=== PATIENT | female | born 1955 | race African-American/Black ===

== ENCOUNTER 2022-02-16 04:45 | Inpatient (IN) | payer OTHER ==
[2022-02-16] MEDS ORDERED: SUCCINYLCHOLINE CHLORIDE 200 MG/10 ML SYRINGE ONE (13:05)
[2022-02-16] MEDS ORDERED: PROPOFOL 20 ML ONE (13:05)
[2022-02-16] MEDS ORDERED: MIDAZOLAM HCL 2 MG/2 ML SINGLE DOSE VIAL ONE (13:05)
[2022-02-16] MEDS ORDERED: VASOPRESSIN 20 UNITS/ML VIAL IV ONE (13:06)
[2022-02-16] MEDS ORDERED: ceFAZolin SODIUM 1 GM VIAL IVPB ONE (13:28)
[2022-02-16] MEDS ORDERED: ceFAZolin SODIUM 1 GM VIAL ONE (13:29)
[2022-02-16] MEDS ORDERED: DEXAMETHASONE SOD PHOSPHATE 4 MG/1 ML VIAL ONE (13:33)
[2022-02-16] MEDS ORDERED: ONDANSETRON 4 MG/2 ML VIAL IVPUSH PRN (15:37)
[2022-02-16] MEDS ORDERED: LACTATED RINGERS SOLUTION 1,000 ML IV SCH (15:45)
[2022-02-16] MEDS ORDERED: FENTANYL CITRATE/PF 50 MCG/ML VIAL ONE (17:23)
[2022-02-16 18:33] LABS: BASO % 0.1 % (0-2.0); EOS % 0.2 % (0-4.5); HEMATOCRIT 45.8 % (32.4-45.2); HEMOGLOBIN 14.9 GM/dL (10.7-15.3); LYMPH % 11.6 % (8-40); MCH 28.8 pg (25.7-33.7); MCHC 32.5 g/dl (32.0-36.0); MEAN CELL VOLUME 88.6 fl (80-96); MONO % 3.7 % (3.8-10.2); NEUT % 84.4 % (42.8-82.8); PLATELET COUNT 270 10^3/uL (134-434); RBC 5.17 M/mm3 (3.60-5.2); WHITE BLOOD COUNT 6.7 K/mm3 (4.0-10.0)
[2022-02-16] MEDS ORDERED: methylPREDNISolone NA SUCC 40 MG/1 ML VIAL ONE (18:39)
[2022-02-16] MEDS ORDERED: ALBUTEROL SO4 0.083% IH SOL 2.5 MG/3 ML VIAL.NEB. NEB ONE (18:39)
[2022-02-16 18:47] LABS: CHLORIDE 108 mmol/L (98-107); SODIUM 145 mmol/L (136-145)
[2022-02-16 18:49] LABS: ALBUMIN 3.5 g/dl (3.4-5.0); ANION GAP 6 MMOL/L (8-16); BLOOD UREA NITROGEN 9.9 mg/dL (7-18); CALCIUM 8.6 mg/dL (8.5-10.1); CO2 31 mmol/L (21-32); GLUCOSE,RANDOM 129 mg/dL (74-106)
[2022-02-16 18:52] LABS: SGOT/AST 23 U/L (15-37); SGPT/ALT 29 U/L (13-61)
[2022-02-16] MEDS: methylPREDNISolone NA SUCC 40 MG/1 ML VIAL IVPUSH SCH (18:53)
[2022-02-16 18:54] LABS: TOT PROT 6.6 g/dl (6.4-8.2)
[2022-02-16 18:55] LABS: ALK PHOS 63 U/L (45-117)
[2022-02-16 19:08] LABS: INR 1.01 (0.83-1.09); PROTHROMBIN TIME (PATIENT) 11.6 SEC (9.7-13.0)
[2022-02-16 19:11] LABS: ACTIVATED PTT 31.2 SECONDS (25.2-36.5)
[2022-02-16] MEDS: LABETALOL HCL 5 MG/1 ML (100MG/20 ML VIAL) IVPUSH ONE ×2 (19:22→19:35)
[2022-02-16] MEDS: ALBUTEROL SO4 2.5/IPRATROPIUM 0.5 INH SOL 3 ML VIAL.NEB. NEB SCH (19:45)
[2022-02-16] MEDS: ROSUVASTATIN CA 20 MG TABLET PO SCH (21:16)
[2022-02-16] MEDS: amLODIPine BESYLATE 10 MG TABLET (FP) PO SCH (21:16)
[2022-02-16] MEDS ORDERED: ACETAMINOPHEN 325 MG TABLET (FP) PO PRN (21:50)
[2022-02-16] MEDS ORDERED: ACETAMINOPHEN 1000 MG/100 ML BAG IVPB PRN (21:50)
[2022-02-16] MEDS ORDERED: DEXTROSE 5%-0.45% SALINE 1,000 ML IV SCH ×2 (22:30)
[2022-02-16] MEDS ORDERED: PREGABALIN 50 MG CAPSULE PO ONE (22:45)
[2022-02-17] MEDS: methylPREDNISolone NA SUCC 40 MG/1 ML VIAL IVPUSH SCH ×3 (02:06→17:47)
[2022-02-17] MEDS: INSULIN SLIDING SCALE (NOVOLOG) 1 VIAL SQ SCH ×4 (07:02→21:37)
[2022-02-17 07:59] LABS: HEMATOCRIT 41.7 % (32.4-45.2); HEMOGLOBIN 13.8 GM/dL (10.7-15.3); MCHC 33.2 g/dl (32.0-36.0); MEAN CELL VOLUME 87.3 fl (80-96); MEAN PLT VOLUME 9.2 fl (7.5-11.1); PLATELET COUNT 252 10^3/uL (134-434); RBC 4.77 M/mm3 (3.60-5.2); RDW 15.7 % (11.6-15.6); WHITE BLOOD COUNT 8.5 K/mm3 (4.0-10.0)
[2022-02-17 08:15] LABS: CALCIUM 8.3 mg/dL (8.5-10.1)
[2022-02-17 08:16] LABS: ALBUMIN 3.2 g/dl (3.4-5.0); BLOOD UREA NITROGEN 10.1 mg/dL (7-18)
[2022-02-17 08:19] LABS: CREATININE 0.8 mg/dL (0.55-1.3)
[2022-02-17 08:20] LABS: TOT PROT 6.2 g/dl (6.4-8.2)
[2022-02-17] MEDS: ALBUTEROL SO4 2.5/IPRATROPIUM 0.5 INH SOL 3 ML VIAL.NEB. NEB SCH ×2 (08:32→11:20)
[2022-02-17 09:02] LABS: ANISOCYTOSIS 0; HELMET CELLS 0; HOWELL-JOLLY BODIES 0; MACROCYTOSIS 0; OVALOCYTE 0; ROULEAU 0; SICKELED CELLS 0; TARGET CELLS 0; TEAR DROP CELLS 0; TOXIC GRANULATION 0
[2022-02-17] MEDS: TICAGRELOR 90 MG TABLET PO SCH ×2 (09:33→21:30)
[2022-02-17] MEDS: HYDROCHLOROTHIAZIDE 25 MG TABLET (FP) PO SCH (09:35)
[2022-02-17] MEDS: ASPIRIN COATED 81 MG TABLET.EC PO SCH (09:35)
[2022-02-17] MEDS: amLODIPine BESYLATE 10 MG TABLET (FP) PO SCH (09:35)
[2022-02-17] MEDS ORDERED: METOPROLOL TARTRATE 50 MG TABLET (FP) PO SCH (10:00)
[2022-02-17] MEDS ORDERED: ALBUTEROL SO4 2.5/IPRATROPIUM 0.5 INH SOL 3 ML VIAL.NEB. NEB PRN (16:01)
[2022-02-17] MEDS ORDERED: oxyCODONE HCL 5 MG TABLET PO PRN (18:18)
[2022-02-17] MEDS: ROSUVASTATIN CA 20 MG TABLET PO SCH (21:29)
[2022-02-18] MEDS: methylPREDNISolone NA SUCC 40 MG/1 ML VIAL IVPUSH SCH ×2 (02:00→10:03)
[2022-02-18 06:36] LABS: HEMATOCRIT 41.9 % (32.4-45.2); HEMOGLOBIN 13.8 GM/dL (10.7-15.3); MCH 28.8 pg (25.7-33.7); MEAN CELL VOLUME 87.2 fl (80-96); MEAN PLT VOLUME 9.4 fl (7.5-11.1); PLATELET COUNT 270 10^3/uL (134-434); RBC 4.81 M/mm3 (3.60-5.2); RDW 16.4 % (11.6-15.6); WHITE BLOOD COUNT 13.9 K/mm3 (4.0-10.0)
[2022-02-18] MEDS: INSULIN SLIDING SCALE (NOVOLOG) 1 VIAL SQ SCH ×4 (06:41→22:26)
[2022-02-18 07:04] LABS: CHLORIDE 102 mmol/L (98-107); SODIUM 140 mmol/L (136-145)
[2022-02-18 07:09] LABS: ALBUMIN 3.4 g/dl (3.4-5.0); ANION GAP 7 MMOL/L (8-16); BLOOD UREA NITROGEN 13.6 mg/dL (7-18); CO2 31 mmol/L (21-32); GLUCOSE,RANDOM 139 mg/dL (74-106)
[2022-02-18 07:12] LABS: CREATININE 0.8 mg/dL (0.55-1.3); SGOT/AST 15 U/L (15-37); SGPT/ALT 22 U/L (13-61)
[2022-02-18 07:13] LABS: TOT PROT 6.5 g/dl (6.4-8.2)
[2022-02-18 07:14] LABS: ALK PHOS 55 U/L (45-117); BILIRUBIN,TOTAL 0.9 mg/dL (0.2-1)
[2022-02-18 08:55] LABS: ANISOCYTOSIS 1+; MACROCYTOSIS 0; OVALOCYTE 2+
[2022-02-18] MEDS: HYDROCHLOROTHIAZIDE 25 MG TABLET (FP) PO SCH (09:31)
[2022-02-18] MEDS: ASPIRIN COATED 81 MG TABLET.EC PO SCH (09:31)
[2022-02-18] MEDS: amLODIPine BESYLATE 10 MG TABLET (FP) PO SCH (09:31)
[2022-02-18] MEDS: TICAGRELOR 90 MG TABLET PO SCH ×2 (09:32→22:26)
[2022-02-18 12:15] VITALS: BMI 45.9
[2022-02-18] MEDS: PANTOPRAZOLE 40 MG TABLET PO SCH (12:33)
[2022-02-18] MEDS ORDERED: oxyCODONE HCL 5 MG TABLET PO PRN (18:54)
[2022-02-18] MEDS: ROSUVASTATIN CA 20 MG TABLET PO SCH (22:26)
[2022-02-19 06:19] LABS: CALCIUM 8.9 mg/dL (8.5-10.1)
[2022-02-19 06:20] LABS: ALBUMIN 3.1 g/dl (3.4-5.0); BLOOD UREA NITROGEN 21.2 mg/dL (7-18)
[2022-02-19 06:23] LABS: CREATININE 0.9 mg/dL (0.55-1.3)
[2022-02-19 06:24] LABS: BILIRUBIN,TOTAL 0.9 mg/dL (0.2-1); TOT PROT 5.9 g/dl (6.4-8.2)
[2022-02-19] MEDS: INSULIN SLIDING SCALE (NOVOLOG) 1 VIAL SQ SCH ×2 (06:40→11:41)
[2022-02-19] MEDS: amLODIPine BESYLATE 10 MG TABLET (FP) PO SCH ×2 (08:11→11:36)
[2022-02-19 08:24] VITALS: TEMP 98.1
[2022-02-19 09:01] LABS: N-TERMINAL BNP 50.4 pg/ml (5-125)
[2022-02-19] MEDS ORDERED: REGADENOSON 0.4 MG/5 ML PRE-FILLED SYRINGE IVPUSH ONE ×2 (10:45→11:15)
[2022-02-19] MEDS: PANTOPRAZOLE 40 MG TABLET PO SCH (11:35)
[2022-02-19] MEDS: ASPIRIN COATED 81 MG TABLET.EC PO SCH (11:35)
[2022-02-19] MEDS: HYDROCHLOROTHIAZIDE 25 MG TABLET (FP) PO SCH (11:35)
[2022-02-19] MEDS: TICAGRELOR 90 MG TABLET PO SCH (11:36)
[2022-02-19 17:17] VITALS: BP 130/73; PULSE 93
== END 2022-02-19 16:30 | disposition home or self-care (01) | DRG 742 ==
LOC: JASU-SURG 04:45 → JERBED 19:10 → JICU 20:37
PROVIDERS: ADMIT Internal Medicine; ATTEND Internal Medicine
PROC: 0UDB8ZX Extraction of Endometrium, Via Natural or Artificial Opening Endoscopic, Diagnostic (ICD-10-PCS; 2022-02-16)
PROC: 0UB98ZZ Excision of Uterus, Via Natural or Artificial Opening Endoscopic (ICD-10-PCS; principal; 2022-02-16 11:00)
DX: D25.0 Submucous leiomyoma of uterus (principal); I97.191 Other postprocedural cardiac functional disturbances following other surgery; J95.89 Other postprocedural complications and disorders of respiratory system, not elsewhere classified; T17.890A Other foreign object in other parts of respiratory tract causing asphyxiation, initial encounter; J98.11 Atelectasis; E87.0 Hyperosmolality and hypernatremia; Z68.42 Body mass index [BMI] 45.0-49.9, adult; B02.8 Zoster with other complications; E66.01 Morbid (severe) obesity due to excess calories; I10 Essential (primary) hypertension; R53.82 Chronic fatigue, unspecified; E78.5 Hyperlipidemia, unspecified; R77.8 Other specified abnormalities of plasma proteins; E11.9 Type 2 diabetes mellitus without complications; I25.10 Atherosclerotic heart disease of native coronary artery without angina pectoris; R91.1 Solitary pulmonary nodule; Y83.8 Other surgical procedures as the cause of abnormal reaction of the patient, or of later complication, without mention of misadventure at the time of the procedure; Z71.3 Dietary counseling and surveillance
CPT/HCPCS: 36415; 71045-TC-FY; 78452-TC; 80053; 80061; 82550; 82553; 82962; 83036; 83880; 84443; 84484; 85025; 85610; 85730; 86850; 86900; 86901; 88305-TC; 93005; 93010; 93017; 93306-TC; 93970-TC; 94010; 94640; 94760; A9502; J2785

== ENCOUNTER 2022-10-23 16:04 | Inpatient (IN) | payer OTHER ==
[2022-10-23] MEDS ORDERED: SODIUM CHLORIDE 1,000 ML IV STA (16:56)
[2022-10-23] MEDS ORDERED: MAG HYDROX/AL HYDROX/SIMETH -MYLANTA- ORAL SUSPENSION PO ONE (17:02)
[2022-10-23] MEDS ORDERED: ONDANSETRON 4 MG/2 ML VIAL IVPUSH ONE (17:02)
[2022-10-23] MEDS ORDERED: FAMOTIDINE 20 MG/50 ML IVPB 20 MG/50 ML MG IVPB ONE ×2 (17:02→17:54)
[2022-10-23] MEDS ORDERED: MAG HYDROX/AL HYDROX/SIMETH 30 ML UNIT-DOSE CUP ONE (17:54)
[2022-10-23] MEDS ORDERED: ONDANSETRON 4 MG/2 ML VIAL ONE (17:54)
[2022-10-23 18:09] LABS: BASO % 0.4 % (0-2.0); EOS % 2.5 % (0-4.5); HEMATOCRIT 46.2 % (32.4-45.2); HEMOGLOBIN 15.3 GM/dL (10.7-15.3); LYMPH % 20.6 % (8-40); MCH 28.2 pg (25.7-33.7); MCHC 33.1 g/dl (32.0-36.0); MEAN CELL VOLUME 85.1 fl (80-96); MEAN PLT VOLUME 10.3 fl (7.5-11.1); MONO % 8.6 % (3.8-10.2); NEUT % 67.9 % (42.8-82.8); PLATELET COUNT 295 10^3/uL (134-434); RBC 5.43 M/mm3 (3.60-5.2); WHITE BLOOD COUNT 7.2 K/mm3 (4.0-10.0)
[2022-10-23 18:31] LABS: ALBUMIN 3.5 g/dl (3.4-5.0); BLOOD UREA NITROGEN 27.3 mg/dL (7-18); CALCIUM 9.6 mg/dL (8.5-10.1); MAGNESIUM 2.1 mg/dL (1.8-2.4)
[2022-10-23 18:34] LABS: CREATININE 1.3 mg/dL (0.55-1.3)
[2022-10-23 18:36] LABS: BILIRUBIN,TOTAL 2.3 mg/dL (0.2-1)
[2022-10-23] MEDS ORDERED: POTASSIUM CHLORIDE ORAL LIQUID 20 MEQ/15 ML PO ONE (20:20)
[2022-10-23] MEDS ORDERED: POTASSIUM CHLORIDE ORAL LIQUID 20 MEQ/15 ML ONE (20:49)
[2022-10-23] MEDS ORDERED: ACETAMINOPHEN 1000 MG/100 ML BAG IVPB PRN (22:23)
[2022-10-24] MEDS: DEXTROSE 5%-0.45% SALINE 1,000 ML IV SCH ×2 (03:39→11:28)
[2022-10-24 04:10] LABS: EPI CELLS 30 /uL (0-25.1); HYALINE CASTS 15 /uL (0-3.1); URINE APPEARANCE CLEAR; URINE BACTERIA 26 /uL (0-1359); URINE BILIRUBIN NEGATIVE (NEGATIVE); URINE COLOR YELLOW; URINE GLUCOSE (UA) NEGATIVE (NEGATIVE); URINE KETONE 1+ (NEGATIVE); URINE LEUK ESTERASE NEGATIVE (NEGATIVE); URINE NITRITE NEGATIVE (NEGATIVE); URINE PROTEIN 1+ (NEGATIVE); URINE RBC 17 /uL (0-23.9); URINE WBC 40 /uL (0-25.8)
[2022-10-24 04:25] VITALS: BMI 29.3
[2022-10-24] MEDS: INSULIN SLIDING SCALE (NOVOLOG) 1 VIAL SQ SCH ×4 (06:02→21:54)
[2022-10-24] MEDS: PANTOPRAZOLE SODIUM 40 MG VIAL IVPUSH SCH (09:29)
[2022-10-24] MEDS: ENOXAPARIN NA (PORCINE) 40 MG/0.4 ML DISP.SYRIN SQ SCH (09:31)
[2022-10-24] MEDS ORDERED: HYDROCHLOROTHIAZIDE 25 MG TABLET (FP) PO SCH (10:00)
[2022-10-24] MEDS: TICAGRELOR 90 MG TABLET PO SCH ×2 (11:28→21:53)
[2022-10-24] MEDS: amLODIPine BESYLATE 10 MG TABLET (FP) PO SCH (11:28)
[2022-10-24] MEDS: PREGABALIN 50 MG CAPSULE PO SCH ×2 (11:28→21:53)
[2022-10-24] MEDS: ASPIRIN COATED 81 MG TABLET.EC PO SCH (11:28)
[2022-10-24] MEDS: DEXTROSE 5%-0.45% SALINE 1,000 ML with POTASSIUM CHLORIDE 20 MEQ IV SCH (14:47)
[2022-10-24 18:19] LABS: BASO % 0.5 % (0-2.0); EOS % 2.6 % (0-4.5); HEMATOCRIT 41.1 % (32.4-45.2); HEMOGLOBIN 13.4 GM/dL (10.7-15.3); MCH 27.9 pg (25.7-33.7); MCHC 32.5 g/dl (32.0-36.0); MEAN CELL VOLUME 85.9 fl (80-96); MEAN PLT VOLUME 9.4 fl (7.5-11.1); MONO % 11.7 % (3.8-10.2); NEUT % 63.2 % (42.8-82.8); PLATELET COUNT 308 10^3/uL (134-434); RBC 4.79 M/mm3 (3.60-5.2); RDW 15.3 % (11.6-15.6); WHITE BLOOD COUNT 5.3 K/mm3 (4.0-10.0)
[2022-10-24 18:41] LABS: BLOOD UREA NITROGEN 17.4 mg/dL (7-18); CALCIUM 8.7 mg/dL (8.5-10.1)
[2022-10-24 18:45] LABS: CREATININE 0.8 mg/dL (0.55-1.3)
[2022-10-24 18:46] LABS: BILIRUBIN,TOTAL 1.8 mg/dL (0.2-1); TOT PROT 6.1 g/dl (6.4-8.2)
[2022-10-24] MEDS: ROSUVASTATIN CA 20 MG TABLET PO SCH (21:53)
[2022-10-25] MEDS: DEXTROSE 5%-0.45% SALINE 1,000 ML with POTASSIUM CHLORIDE 20 MEQ IV SCH (05:15)
[2022-10-25] MEDS: INSULIN SLIDING SCALE (NOVOLOG) 1 VIAL SQ SCH ×4 (06:06→21:49)
[2022-10-25] MEDS: ENOXAPARIN NA (PORCINE) 40 MG/0.4 ML DISP.SYRIN SQ SCH (09:07)
[2022-10-25] MEDS: PREGABALIN 50 MG CAPSULE PO SCH ×3 (09:07→21:49)
[2022-10-25] MEDS: amLODIPine BESYLATE 10 MG TABLET (FP) PO SCH ×2 (09:07→09:13)
[2022-10-25] MEDS: ASPIRIN COATED 81 MG TABLET.EC PO SCH ×2 (09:07→09:13)
[2022-10-25] MEDS: PANTOPRAZOLE SODIUM 40 MG VIAL IVPUSH SCH (09:07)
[2022-10-25] MEDS: TICAGRELOR 90 MG TABLET PO SCH ×3 (09:08→21:49)
[2022-10-25] MEDS: ONDANSETRON 4 MG/2 ML VIAL IVPUSH PRN (09:20)
[2022-10-25 10:20] LABS: BASO % 0.4 % (0-2.0); EOS % 1.9 % (0-4.5); HEMATOCRIT 41.9 % (32.4-45.2); HEMOGLOBIN 13.9 GM/dL (10.7-15.3); LYMPH % 15.2 % (8-40); MCH 28.4 pg (25.7-33.7); MCHC 33.1 g/dl (32.0-36.0); MEAN CELL VOLUME 86.1 fl (80-96); MEAN PLT VOLUME 9.1 fl (7.5-11.1); NEUT % 71.5 % (42.8-82.8); PLATELET COUNT 292 10^3/uL (134-434); RBC 4.87 M/mm3 (3.60-5.2); RDW 15.3 % (11.6-15.6); WHITE BLOOD COUNT 5.6 K/mm3 (4.0-10.0)
[2022-10-25 10:30] LABS: BLOOD UREA NITROGEN 12.2 mg/dL (7-18); CALCIUM 8.6 mg/dL (8.5-10.1); MAGNESIUM 2.4 mg/dL (1.8-2.4)
[2022-10-25 10:33] LABS: CREATININE 0.8 mg/dL (0.55-1.3)
[2022-10-25 10:35] LABS: BILIRUBIN,TOTAL 1.7 mg/dL (0.2-1)
[2022-10-25] MEDS ORDERED: POTASSIUM PHOSPHATE 30 MM in SODIUM CHLORIDE 500 ML IVPB ONE (12:45)
[2022-10-25] MEDS ORDERED: DEXTROSE 5%-0.45% SALINE 1,000 ML with POTASSIUM CHLORIDE 20 MEQ IV SCH (12:45)
[2022-10-25] MEDS ORDERED: POTASSIUM CHLORIDE 20 MEQ in DEXTROSE 5%-0.45% SALINE 1,000 ML IV SCH (12:48)
[2022-10-25] MEDS: D5-1/2NS+20 MEQ KCL - 20 MEQ/1,000 ML INFUS.BAG IV SCH (13:00)
[2022-10-25] MEDS ORDERED: KCL 10 MEQ IVPB 10 MEQ/100 ML INFUS.BAG IVPB SCH (21:00)
[2022-10-25] MEDS: ROSUVASTATIN CA 20 MG TABLET PO SCH (21:49)
[2022-10-26] MEDS: INSULIN SLIDING SCALE (NOVOLOG) 1 VIAL SQ SCH ×4 (06:47→23:30)
[2022-10-26] MEDS ORDERED: PHENOL 177 ML SPRAY BOTTLE MM PRN (08:28)
[2022-10-26] MEDS: ASPIRIN COATED 81 MG TABLET.EC PO SCH (09:30)
[2022-10-26] MEDS: TICAGRELOR 90 MG TABLET PO SCH ×2 (09:30→21:50)
[2022-10-26] MEDS: PREGABALIN 50 MG CAPSULE PO SCH ×2 (09:37→21:50)
[2022-10-26] MEDS: amLODIPine BESYLATE 10 MG TABLET (FP) PO SCH (09:37)
[2022-10-26] MEDS: PANTOPRAZOLE SODIUM 40 MG VIAL IVPUSH SCH (09:55)
[2022-10-26] MEDS: ENOXAPARIN NA (PORCINE) 40 MG/0.4 ML DISP.SYRIN SQ SCH (09:55)
[2022-10-26 10:47] LABS: ALBUMIN 2.8 g/dl (3.4-5.0); BLOOD UREA NITROGEN 9.7 mg/dL (7-18); CALCIUM 8.5 mg/dL (8.5-10.1); MAGNESIUM 2.4 mg/dL (1.8-2.4)
[2022-10-26 10:49] LABS: CREATININE 0.8 mg/dL (0.55-1.3)
[2022-10-26 10:50] LABS: PHOSPHOROUS 2.4 mg/dL (2.5-4.9)
[2022-10-26 10:52] LABS: BILIRUBIN,TOTAL 1.5 mg/dL (0.2-1); TOT PROT 5.8 g/dl (6.4-8.2)
[2022-10-26] MEDS ORDERED: POTASSIUM PHOSPHATE 15 MM in SODIUM CHLORIDE 250 ML IVPB ONE (15:57)
[2022-10-26] MEDS: D5-1/2NS+20 MEQ KCL - 20 MEQ/1,000 ML INFUS.BAG IV SCH (17:24)
[2022-10-26] MEDS: ONDANSETRON 4 MG/2 ML VIAL IVPUSH PRN (18:21)
[2022-10-26] MEDS: ROSUVASTATIN CA 20 MG TABLET PO SCH (21:50)
[2022-10-27] MEDS: INSULIN SLIDING SCALE (NOVOLOG) 1 VIAL SQ SCH ×4 (06:40→21:39)
[2022-10-27 10:39] LABS: ALBUMIN 2.9 g/dl (3.4-5.0); BLOOD UREA NITROGEN 15.9 mg/dL (7-18); MAGNESIUM 2.4 mg/dL (1.8-2.4)
[2022-10-27 10:41] LABS: CREATININE 0.8 mg/dL (0.55-1.3); PHOSPHOROUS 3.4 mg/dL (2.5-4.9)
[2022-10-27 10:42] LABS: TOT PROT 6.1 g/dl (6.4-8.2)
[2022-10-27] MEDS: ASPIRIN COATED 81 MG TABLET.EC PO SCH (12:19)
[2022-10-27] MEDS: TICAGRELOR 90 MG TABLET PO SCH ×2 (12:19→21:39)
[2022-10-27] MEDS: ENOXAPARIN NA (PORCINE) 40 MG/0.4 ML DISP.SYRIN SQ SCH (12:19)
[2022-10-27] MEDS: PREGABALIN 50 MG CAPSULE PO SCH ×2 (12:20→21:39)
[2022-10-27] MEDS: amLODIPine BESYLATE 10 MG TABLET (FP) PO SCH (12:20)
[2022-10-27] MEDS: PANTOPRAZOLE SODIUM 40 MG VIAL IVPUSH SCH (12:20)
[2022-10-27] MEDS: ONDANSETRON 4 MG/2 ML VIAL IVPUSH PRN (12:50)
[2022-10-27] MEDS: D5-1/2NS+20 MEQ KCL - 20 MEQ/1,000 ML INFUS.BAG IV SCH (17:18)
[2022-10-27] MEDS: ROSUVASTATIN CA 20 MG TABLET PO SCH (21:39)
[2022-10-27] MEDS ORDERED: amLODIPine BESYLATE 10 MG TABLET (FP) NGT SCH (21:58)
[2022-10-27] MEDS ORDERED: ROSUVASTATIN CA 20 MG TABLET NGT SCH (21:58)
[2022-10-27] MEDS: METOPROLOL TARTRATE 25 MG TABLET (FP) NGT SCH (22:26)
[2022-10-28] MEDS ORDERED: BUPIVACAINE HCL/PF 0.5% (5MG/ML) 10 ML VIAL NR ONE
[2022-10-28] MEDS: ONDANSETRON 4 MG/2 ML VIAL IVPUSH PRN (01:09)
[2022-10-28] MEDS: INSULIN SLIDING SCALE (NOVOLOG) 1 VIAL SQ SCH ×3 (06:27→23:03)
[2022-10-28] MEDS ORDERED: LIDOCAINE HCL/PF 2% SDV 5ML VIAL ONE (07:25)
[2022-10-28] MEDS ORDERED: MIDAZOLAM HCL 2 MG/2 ML SINGLE DOSE VIAL ONE (07:25)
[2022-10-28] MEDS ORDERED: PROPOFOL 40 ML ONE (07:27)
[2022-10-28] MEDS ORDERED: ROCURONIUM BROMIDE 50 MG/5 ML SYRINGE ONE ×2 (07:27→09:01)
[2022-10-28] MEDS ORDERED: BUPIVACAINE HCL/PF 0.5% (5MG/ML) 10 ML VIAL ONE (07:47)
[2022-10-28] MEDS ORDERED: CLINDAMYCIN 600MG PREMIX IVPB 600 MG/50 ML BAG IVPB ONE ×2 (08:48→09:00)
[2022-10-28] MEDS ORDERED: DEXAMETHASONE SOD PHOSPHATE 4 MG/1 ML VIAL ONE (08:48)
[2022-10-28] MEDS ORDERED: CLINDAMYCIN PHOSPHATE 600 MG/4 ML VIAL IVPB ONE (08:51)
[2022-10-28] MEDS ORDERED: KETAMINE HCL 500 MG/10 ML VIAL ONE (09:06)
[2022-10-28] MEDS ORDERED: SUGAMMADEX SODIUM 200 MG/2 ML VIAL ONE (09:43)
[2022-10-28] MEDS: METOPROLOL TARTRATE 25 MG TABLET (FP) NGT SCH (10:27)
[2022-10-28] MEDS: ENOXAPARIN NA (PORCINE) 40 MG/0.4 ML DISP.SYRIN SQ SCH (10:27)
[2022-10-28] MEDS: PANTOPRAZOLE SODIUM 40 MG VIAL IVPUSH SCH (10:28)
[2022-10-28] MEDS: PREGABALIN 50 MG CAPSULE PO SCH (10:28)
[2022-10-28] MEDS ORDERED: ACETAMINOPHEN INJECTION 100 ML IVPB ONE ×2 (10:34→14:26)
[2022-10-28] MEDS ORDERED: LABETALOL HCL 20 MG/4 ML VIAL ONE (11:10)
[2022-10-28] MEDS ORDERED: ONDANSETRON 4 MG/2 ML VIAL IVPUSH PRN (11:42)
[2022-10-28] MEDS ORDERED: HYDROmorphone *PCA* 10MG/50ML DISP.SYRIN PCA SCH (11:45)
[2022-10-28] MEDS ORDERED: LACTATED RINGERS SOLUTION 1,000 ML IV SCH (11:45)
[2022-10-28] MEDS ORDERED: PHENOL 177 ML SPRAY BOTTLE MM PRN (11:56)
[2022-10-28] MEDS: LACTATED RINGERS SOLUTION 1,000 ML IV SCH ×2 (14:30→23:00)
[2022-10-28 15:36] LABS: HEMOGLOBIN 12.5 GM/dL (10.7-15.3); MCHC 32.7 g/dl (32.0-36.0); MEAN CELL VOLUME 88.7 fl (80-96); MEAN PLT VOLUME 8.6 fl (7.5-11.1); PLATELET COUNT 329 10^3/uL (134-434); RBC 4.29 M/mm3 (3.60-5.2); RDW 15.3 % (11.6-15.6); WHITE BLOOD COUNT 7.3 K/mm3 (4.0-10.0)
[2022-10-28 15:41] LABS: INR 1.17 (0.83-1.09); PROTHROMBIN TIME (PATIENT) 13.5 SEC (9.7-13.0)
[2022-10-28] MEDS: HYDROmorphone *PCA* 10MG/50ML DISP.SYRIN PCA SCH (16:00)
[2022-10-28 16:01] LABS: CALCIUM 7.9 mg/dL (8.5-10.1)
[2022-10-28 16:02] LABS: BLOOD UREA NITROGEN 14.9 mg/dL (7-18)
[2022-10-28 16:05] LABS: CREATININE 0.8 mg/dL (0.55-1.3)
[2022-10-28 16:11] LABS: ANISOCYTOSIS 1+; MACROCYTOSIS 0; OVALOCYTE 1+
[2022-10-28] MEDS ORDERED: ACETAMINOPHEN 1000 MG/100 ML BAG IVPB PRN (18:00)
[2022-10-28] MEDS ORDERED: ROSUVASTATIN CA 20 MG TABLET NGT SCH (22:00)
[2022-10-28] MEDS ORDERED: PREGABALIN 50 MG CAPSULE PO SCH (22:00)
[2022-10-28] MEDS ORDERED: METOPROLOL TARTRATE 25 MG TABLET (FP) NGT SCH (22:00)
[2022-10-29] MEDS: INSULIN SLIDING SCALE (NOVOLOG) 1 VIAL SQ SCH ×4 (06:48→21:46)
[2022-10-29] MEDS: LACTATED RINGERS SOLUTION 1,000 ML IV SCH ×2 (07:08→17:16)
[2022-10-29] MEDS: PANTOPRAZOLE SODIUM 40 MG VIAL IVPUSH SCH (09:42)
[2022-10-29] MEDS: ENOXAPARIN NA (PORCINE) 40 MG/0.4 ML DISP.SYRIN SQ SCH (09:43)
[2022-10-29] MEDS ORDERED: amLODIPine BESYLATE 10 MG TABLET (FP) NGT SCH (10:00)
[2022-10-29] MEDS: AMINO ACIDS 4.25%/D5W 1,000 ML IV SCH ×2 (10:17→22:00)
[2022-10-29 10:41] LABS: BASO % 0.2 % (0-2.0); EOS % 0.7 % (0-4.5); HEMATOCRIT 36.3 % (32.4-45.2); HEMOGLOBIN 11.9 GM/dL (10.7-15.3); LYMPH % 6.2 % (8-40); MCH 29.1 pg (25.7-33.7); MCHC 32.7 g/dl (32.0-36.0); MEAN CELL VOLUME 89.2 fl (80-96); MEAN PLT VOLUME 9.2 fl (7.5-11.1); MONO % 4.8 % (3.8-10.2); NEUT % 88.1 % (42.8-82.8); PLATELET COUNT 347 10^3/uL (134-434); RBC 4.07 M/mm3 (3.60-5.2); RDW 15.4 % (11.6-15.6); WHITE BLOOD COUNT 12.2 K/mm3 (4.0-10.0)
[2022-10-29 11:00] LABS: CALCIUM 7.8 mg/dL (8.5-10.1)
[2022-10-29 11:01] LABS: BLOOD UREA NITROGEN 13.6 mg/dL (7-18)
[2022-10-29 11:04] LABS: CREATININE 0.7 mg/dL (0.55-1.3)
[2022-10-29 11:05] LABS: BILIRUBIN,TOTAL 0.9 mg/dL (0.2-1)
[2022-10-29] MEDS: HYDROmorphone *PCA* 10MG/50ML DISP.SYRIN PCA SCH ×2 (11:21→11:29)
[2022-10-29 11:23] LABS: ALBUMIN 2.1 g/dl (3.4-5.0)
[2022-10-30] MEDS: LACTATED RINGERS SOLUTION 1,000 ML IV SCH (06:24)
[2022-10-30] MEDS: INSULIN SLIDING SCALE (NOVOLOG) 1 VIAL SQ SCH ×4 (06:32→21:49)
[2022-10-30 07:35] LABS: BASO % 0.2 % (0-2.0); EOS % 2.2 % (0-4.5); HEMATOCRIT 33.3 % (32.4-45.2); HEMOGLOBIN 10.9 GM/dL (10.7-15.3); LYMPH % 7.2 % (8-40); MCH 28.9 pg (25.7-33.7); MCHC 32.6 g/dl (32.0-36.0); MEAN CELL VOLUME 88.5 fl (80-96); MEAN PLT VOLUME 9.1 fl (7.5-11.1); MONO % 4.6 % (3.8-10.2); NEUT % 85.8 % (42.8-82.8); PLATELET COUNT 307 10^3/uL (134-434); RBC 3.77 M/mm3 (3.60-5.2); RDW 15.7 % (11.6-15.6); WHITE BLOOD COUNT 12.4 K/mm3 (4.0-10.0)
[2022-10-30 08:03] LABS: CHLORIDE 110 mmol/L (98-107); SODIUM 146 mmol/L (136-145)
[2022-10-30 08:06] LABS: CALCIUM 7.8 mg/dL (8.5-10.1)
[2022-10-30 08:07] LABS: ALBUMIN 1.8 g/dl (3.4-5.0); ANION GAP 3 MMOL/L (8-16); BLOOD UREA NITROGEN 15.8 mg/dL (7-18); CO2 33 mmol/L (21-32); GLUCOSE,RANDOM 118 mg/dL (74-106); MAGNESIUM 2.1 mg/dL (1.8-2.4)
[2022-10-30 08:10] LABS: CREATININE 0.7 mg/dL (0.55-1.3); SGOT/AST 10 U/L (15-37); SGPT/ALT 15 U/L (13-61); TOT PROT 4.6 g/dl (6.4-8.2)
[2022-10-30 08:11] LABS: ALK PHOS 59 U/L (45-117); BILIRUBIN,TOTAL 0.9 mg/dL (0.2-1)
[2022-10-30 08:28] LABS: PHOSPHOROUS 0.8 mg/dL (2.5-4.9)
[2022-10-30] MEDS: ENOXAPARIN NA (PORCINE) 40 MG/0.4 ML DISP.SYRIN SQ SCH (09:07)
[2022-10-30] MEDS: PANTOPRAZOLE SODIUM 40 MG VIAL IVPUSH SCH (09:07)
[2022-10-30] MEDS: AMINO ACIDS 4.25%/D5W 1,000 ML IV SCH (09:18)
[2022-10-30] MEDS: HYDROmorphone *PCA* 10MG/50ML DISP.SYRIN PCA SCH (09:24)
[2022-10-30] MEDS ORDERED: POTASSIUM PHOSPHATE 30 MM in DEXTROSE 5%-WATER - 500 ML IVPB ONE (14:45)
[2022-10-30] MEDS ORDERED: FAT EMULSION/OLIVE/SOY/PHOSPHO 250 ML IV SCH (22:00)
[2022-10-30] MEDS ORDERED: FAT EMULSION/OLIVE/SOY (CLINOLIPID) 250 ML EMULSION IV SCH (22:00)
[2022-10-31] MEDS: LACTATED RINGERS SOLUTION 1,000 ML IV SCH ×3 (01:53→23:23)
[2022-10-31] MEDS: AMINO ACIDS 4.25%/D5W 1,000 ML IV SCH ×3 (01:54→22:05)
[2022-10-31] MEDS: INSULIN SLIDING SCALE (NOVOLOG) 1 VIAL SQ SCH ×4 (09:36→21:13)
[2022-10-31] MEDS: PANTOPRAZOLE SODIUM 40 MG VIAL IVPUSH SCH (09:39)
[2022-10-31] MEDS: ENOXAPARIN NA (PORCINE) 40 MG/0.4 ML DISP.SYRIN SQ SCH (09:40)
[2022-10-31 10:40] LABS: BASO % 0.4 % (0-2.0); EOS % 2.5 % (0-4.5); HEMATOCRIT 34.3 % (32.4-45.2); HEMOGLOBIN 11.2 GM/dL (10.7-15.3); LYMPH % 6.9 % (8-40); MCH 28.8 pg (25.7-33.7); MCHC 32.5 g/dl (32.0-36.0); MEAN CELL VOLUME 88.5 fl (80-96); MEAN PLT VOLUME 8.9 fl (7.5-11.1); MONO % 5.9 % (3.8-10.2); NEUT % 84.3 % (42.8-82.8); PLATELET COUNT 340 10^3/uL (134-434); RBC 3.88 M/mm3 (3.60-5.2); RDW 15.8 % (11.6-15.6); WHITE BLOOD COUNT 12.7 K/mm3 (4.0-10.0)
[2022-10-31 10:58] LABS: CALCIUM 7.7 mg/dL (8.5-10.1)
[2022-10-31 10:59] LABS: BLOOD UREA NITROGEN 12.6 mg/dL (7-18)
[2022-10-31 11:02] LABS: CREATININE 0.6 mg/dL (0.55-1.3); PHOSPHOROUS 2.1 mg/dL (2.5-4.9)
[2022-10-31 11:03] LABS: TOT PROT 5.2 g/dl (6.4-8.2)
[2022-10-31 11:07] LABS: BILIRUBIN,TOTAL 0.7 mg/dL (0.2-1)
[2022-10-31 11:22] LABS: CHOLESTEROL 106 mg/dL (50-200); TRIGLYCERIDES 214 mg/dL (0-150)
[2022-10-31 11:24] LABS: LDL CHOLESTEROL (ONLY SJRH) 63 mg/dL (5-100)
[2022-10-31 11:25] LABS: HDL CHOLESTEROL 23 mg/dL (40-60)
[2022-10-31] MEDS ORDERED: ACETAMINOPHEN 1000 MG/100 ML BAG IVPB PRN (20:26)
[2022-11-01] MEDS: INSULIN SLIDING SCALE (NOVOLOG) 1 VIAL SQ SCH ×4 (06:11→21:53)
[2022-11-01] MEDS: ONDANSETRON 4 MG/2 ML VIAL IVPUSH PRN ×2 (06:45→14:45)
[2022-11-01 09:36] LABS: BASO % 0.2 % (0-2.0); EOS % 2.3 % (0-4.5); HEMATOCRIT 32.7 % (32.4-45.2); HEMOGLOBIN 10.9 GM/dL (10.7-15.3); LYMPH % 6.1 % (8-40); MCH 29.1 pg (25.7-33.7); MCHC 33.2 g/dl (32.0-36.0); MEAN CELL VOLUME 87.6 fl (80-96); MEAN PLT VOLUME 8.7 fl (7.5-11.1); MONO % 6.7 % (3.8-10.2); NEUT % 84.7 % (42.8-82.8); PLATELET COUNT 343 10^3/uL (134-434); RBC 3.73 M/mm3 (3.60-5.2); RDW 15.5 % (11.6-15.6); WHITE BLOOD COUNT 12.1 K/mm3 (4.0-10.0)
[2022-11-01 10:00] LABS: CALCIUM 7.8 mg/dL (8.5-10.1)
[2022-11-01] MEDS: ENOXAPARIN NA (PORCINE) 40 MG/0.4 ML DISP.SYRIN SQ SCH (10:00)
[2022-11-01] MEDS: PANTOPRAZOLE SODIUM 40 MG VIAL IVPUSH SCH (10:00)
[2022-11-01 10:01] LABS: ALBUMIN 1.9 g/dl (3.4-5.0); BLOOD UREA NITROGEN 13.4 mg/dL (7-18)
[2022-11-01 10:02] LABS: PHOSPHOROUS 1.6 mg/dL (2.5-4.9)
[2022-11-01 10:04] LABS: BILIRUBIN,TOTAL 0.7 mg/dL (0.2-1); CREATININE 0.5 mg/dL (0.55-1.3); TOT PROT 5.3 g/dl (6.4-8.2)
[2022-11-01] MEDS: AMINO ACIDS 4.25%/D5W 1,000 ML IV SCH ×2 (10:10→11:27)
[2022-11-01 10:58] LABS: ANISOCYTOSIS 0; HELMET CELLS 0; HOWELL-JOLLY BODIES 0; MACROCYTOSIS 0; OVALOCYTE 0; ROULEAU 0; SICKELED CELLS 0; TARGET CELLS 0; TEAR DROP CELLS 0; TOXIC GRANULATION 0
[2022-11-01] MEDS: KCL 10 MEQ IVPB 10 MEQ/100 ML INFUS.BAG IVPB SCH ×3 (15:59→18:38)
[2022-11-01] MEDS: DEXTROSE 5%-0.45% SALINE 1,000 ML IV SCH (16:37)
[2022-11-01] MEDS: ROSUVASTATIN CA 20 MG TABLET PO SCH (21:44)
[2022-11-01] MEDS ORDERED: PREGABALIN 50 MG CAPSULE PO SCH (22:00)
[2022-11-01] MEDS: ACETAMINOPHEN 1000 MG/100 ML BAG IVPB PRN (23:21)
[2022-11-02] MEDS: ONDANSETRON 4 MG/2 ML VIAL IVPUSH PRN (04:12)
[2022-11-02] MEDS: INSULIN SLIDING SCALE (NOVOLOG) 1 VIAL SQ SCH ×4 (07:50→22:04)
[2022-11-02 09:33] LABS: BASO % 0.3 % (0-2.0); EOS % 3.2 % (0-4.5); HEMATOCRIT 33.1 % (32.4-45.2); HEMOGLOBIN 10.9 GM/dL (10.7-15.3); LYMPH % 10.1 % (8-40); MCH 28.2 pg (25.7-33.7); MCHC 32.9 g/dl (32.0-36.0); MEAN CELL VOLUME 85.6 fl (80-96); MEAN PLT VOLUME 8.5 fl (7.5-11.1); MONO % 8.9 % (3.8-10.2); NEUT % 77.5 % (42.8-82.8); PLATELET COUNT 349 10^3/uL (134-434); RBC 3.87 M/mm3 (3.60-5.2); RDW 15.6 % (11.6-15.6); WHITE BLOOD COUNT 8.9 K/mm3 (4.0-10.0)
[2022-11-02 09:59] LABS: BLOOD UREA NITROGEN 10.5 mg/dL (7-18); CALCIUM 7.9 mg/dL (8.5-10.1)
[2022-11-02] MEDS ORDERED: TICAGRELOR 90 MG TABLET PO SCH (10:00)
[2022-11-02] MEDS ORDERED: ASPIRIN 81 MG CHEWABLE TABLETS PO SCH (10:00)
[2022-11-02 10:02] LABS: CREATININE 0.6 mg/dL (0.55-1.3)
[2022-11-02] MEDS: amLODIPine BESYLATE 5 MG TABLET (FP) PO SCH (10:03)
[2022-11-02] MEDS: ENOXAPARIN NA (PORCINE) 40 MG/0.4 ML DISP.SYRIN SQ SCH (10:03)
[2022-11-02] MEDS: PANTOPRAZOLE SODIUM 40 MG VIAL IVPUSH SCH (10:03)
[2022-11-02] MEDS: ACETAMINOPHEN 1000 MG/100 ML BAG IVPB PRN (11:57)
[2022-11-02] MEDS ORDERED: POTASSIUM CHLORIDE ORAL LIQUID 20 MEQ/15 ML PO ONE (12:00)
[2022-11-02] MEDS: DEXTROSE 5%-0.45% SALINE 1,000 ML IV SCH (14:42)
[2022-11-02] MEDS ORDERED: D5-1/2NS+20 MEQ KCL - 20 MEQ/1,000 ML INFUS.BAG IV SCH (16:19)
[2022-11-02] MEDS: ROSUVASTATIN CA 20 MG TABLET PO SCH (22:01)
[2022-11-03] MEDS: INSULIN SLIDING SCALE (NOVOLOG) 1 VIAL SQ SCH ×4 (06:19→22:02)
[2022-11-03] MEDS: amLODIPine BESYLATE 5 MG TABLET (FP) PO SCH (09:50)
[2022-11-03] MEDS: PANTOPRAZOLE SODIUM 40 MG VIAL IVPUSH SCH (09:50)
[2022-11-03] MEDS: ENOXAPARIN NA (PORCINE) 40 MG/0.4 ML DISP.SYRIN SQ SCH (09:50)
[2022-11-03 10:28] LABS: BLOOD UREA NITROGEN 7.7 mg/dL (7-18); CALCIUM 8.2 mg/dL (8.5-10.1)
[2022-11-03 10:31] LABS: CREATININE 0.6 mg/dL (0.55-1.3)
[2022-11-03 10:33] LABS: BILIRUBIN,TOTAL 0.5 mg/dL (0.2-1); TOT PROT 5.4 g/dl (6.4-8.2)
[2022-11-03] MEDS: CLINDAMYCIN 900 MG PREMIX IVPB 900 MG/50 ML BAG IVPB SCH (18:21)
[2022-11-03] MEDS: ROSUVASTATIN CA 20 MG TABLET PO SCH (22:12)
[2022-11-04] MEDS: CLINDAMYCIN 900 MG PREMIX IVPB 900 MG/50 ML BAG IVPB SCH ×2 (01:34→09:15)
[2022-11-04] MEDS: INSULIN SLIDING SCALE (NOVOLOG) 1 VIAL SQ SCH ×4 (06:37→21:21)
[2022-11-04] MEDS: amLODIPine BESYLATE 5 MG TABLET (FP) PO SCH (09:15)
[2022-11-04] MEDS: ENOXAPARIN NA (PORCINE) 40 MG/0.4 ML DISP.SYRIN SQ SCH (09:15)
[2022-11-04] MEDS: PANTOPRAZOLE SODIUM 40 MG VIAL IVPUSH SCH (09:15)
[2022-11-04 11:06] LABS: BASO % 0.8 % (0-2.0); EOS % 2.5 % (0-4.5); LYMPH % 13.4 % (8-40); MCH 29.1 pg (25.7-33.7); MCHC 33.3 g/dl (32.0-36.0); MEAN CELL VOLUME 87.4 fl (80-96); MEAN PLT VOLUME 8.6 fl (7.5-11.1); MONO % 8.4 % (3.8-10.2); NEUT % 74.9 % (42.8-82.8); PLATELET COUNT 451 10^3/uL (134-434); RBC 3.77 M/mm3 (3.60-5.2); RDW 15.7 % (11.6-15.6); WHITE BLOOD COUNT 7.9 K/mm3 (4.0-10.0)
[2022-11-04 11:43] LABS: BLOOD UREA NITROGEN 7.4 mg/dL (7-18); CALCIUM 7.9 mg/dL (8.5-10.1)
[2022-11-04 11:44] LABS: ALBUMIN 1.9 g/dl (3.4-5.0)
[2022-11-04 11:47] LABS: CREATININE 0.6 mg/dL (0.55-1.3)
[2022-11-04 11:48] LABS: BILIRUBIN,TOTAL 0.6 mg/dL (0.2-1); TOT PROT 5.1 g/dl (6.4-8.2)
[2022-11-04] MEDS ORDERED: ACETAMINOPHEN 1000 MG/100 ML BAG IVPB PRN (21:15)
[2022-11-04] MEDS: ROSUVASTATIN CA 20 MG TABLET PO SCH (21:19)
[2022-11-05] MEDS: INSULIN SLIDING SCALE (NOVOLOG) 1 VIAL SQ SCH ×4 (06:01→21:10)
[2022-11-05] MEDS: amLODIPine BESYLATE 5 MG TABLET (FP) PO SCH (09:28)
[2022-11-05] MEDS: AMINO ACIDS/PROTEIN HYDROLYS 30 ML LIQUID.PKT PO SCH (09:28)
[2022-11-05] MEDS: PANTOPRAZOLE SODIUM 40 MG VIAL IVPUSH SCH (09:29)
[2022-11-05] MEDS: PANTOPRAZOLE 40 MG TABLET PO SCH (10:19)
[2022-11-05] MEDS ORDERED: ACETAMINOPHEN 325 MG TABLET (FP) PO PRN (12:01)
[2022-11-05] MEDS: ENOXAPARIN NA (PORCINE) 40 MG/0.4 ML DISP.SYRIN SQ SCH (12:20)
[2022-11-05] MEDS: ROSUVASTATIN CA 20 MG TABLET PO SCH (21:10)
[2022-11-06] MEDS: INSULIN SLIDING SCALE (NOVOLOG) 1 VIAL SQ SCH ×2 (06:23→22:31)
[2022-11-06] MEDS: AMINO ACIDS/PROTEIN HYDROLYS 30 ML LIQUID.PKT PO SCH (08:03)
[2022-11-06] MEDS: amLODIPine BESYLATE 5 MG TABLET (FP) PO SCH (09:00)
[2022-11-06] MEDS: PANTOPRAZOLE 40 MG TABLET PO SCH (09:01)
[2022-11-06] MEDS: ENOXAPARIN NA (PORCINE) 40 MG/0.4 ML DISP.SYRIN SQ SCH (09:01)
[2022-11-06] MEDS ORDERED: LIDOCAINE HCL/PF 2% SDV 5ML VIAL ONE (10:49)
[2022-11-06] MEDS ORDERED: PROPOFOL 20 ML ONE (10:49)
[2022-11-06] MEDS ORDERED: MIDAZOLAM HCL 2 MG/2 ML SINGLE DOSE VIAL ONE (10:50)
[2022-11-06] MEDS ORDERED: BENZOIN/ALOE VERA/STORAX/TOLU 58 ML BOTTLE NR ONE (13:58)
[2022-11-06] MEDS ORDERED: ONDANSETRON 4 MG/2 ML VIAL IVPUSH PRN ×2 (14:25→14:33)
[2022-11-06] MEDS ORDERED: oxyCODONE HCL 5 MG TABLET PO PRN ×2 (14:25→14:33)
[2022-11-06] MEDS ORDERED: LACTATED RINGERS SOLUTION 1,000 ML IV SCH ×2 (14:30→14:33)
[2022-11-06] MEDS ORDERED: PHENOL 177 ML SPRAY BOTTLE MM PRN (14:33)
[2022-11-06] MEDS: ROSUVASTATIN CA 20 MG TABLET PO SCH (21:56)
[2022-11-07] MEDS: INSULIN SLIDING SCALE (NOVOLOG) 1 VIAL SQ SCH ×4 (06:34→21:04)
[2022-11-07] MEDS ORDERED: AMINO ACIDS/PROTEIN HYDROLYS 30 ML LIQUID.PKT PO SCH (08:00)
[2022-11-07] MEDS: amLODIPine BESYLATE 5 MG TABLET (FP) PO SCH (09:05)
[2022-11-07] MEDS: ENOXAPARIN NA (PORCINE) 40 MG/0.4 ML DISP.SYRIN SQ SCH (09:05)
[2022-11-07] MEDS: PANTOPRAZOLE 40 MG TABLET PO SCH (09:05)
[2022-11-07] MEDS: LIDOCAINE 5% TOPICAL PATCH TP SCH (12:57)
[2022-11-07] MEDS: ACETAMINOPHEN 500 MG TABLET (FP) PO PRN (15:48)
[2022-11-07] MEDS: AMINO ACIDS/PROTEIN HYDROLYS 30 ML LIQUID.PKT PO SCH (18:39)
[2022-11-07] MEDS: ROSUVASTATIN CA 20 MG TABLET PO SCH (21:04)
[2022-11-07] MEDS: LIDOCAINE PATCH REMOVAL MC SCH (21:07)
[2022-11-08] MEDS: AMINO ACIDS/PROTEIN HYDROLYS 30 ML LIQUID.PKT PO SCH ×2 (08:31→17:46)
[2022-11-08] MEDS: amLODIPine BESYLATE 5 MG TABLET (FP) PO SCH (10:40)
[2022-11-08] MEDS: ENOXAPARIN NA (PORCINE) 40 MG/0.4 ML DISP.SYRIN SQ SCH (10:40)
[2022-11-08] MEDS: PANTOPRAZOLE 40 MG TABLET PO SCH (10:40)
[2022-11-08] MEDS: LIDOCAINE 5% TOPICAL PATCH TP SCH (10:41)
[2022-11-08] MEDS: INSULIN SLIDING SCALE (NOVOLOG) 1 VIAL SQ SCH ×3 (11:00→21:49)
[2022-11-08] MEDS: LIDOCAINE PATCH REMOVAL MC SCH (21:12)
[2022-11-08] MEDS: ROSUVASTATIN CA 20 MG TABLET PO SCH (21:51)
[2022-11-08] MEDS: ACETAMINOPHEN 500 MG TABLET (FP) PO PRN (21:52)
[2022-11-09] MEDS: INSULIN SLIDING SCALE (NOVOLOG) 1 VIAL SQ SCH ×4 (06:28→21:28)
[2022-11-09] MEDS: amLODIPine BESYLATE 5 MG TABLET (FP) PO SCH (09:07)
[2022-11-09] MEDS: ENOXAPARIN NA (PORCINE) 40 MG/0.4 ML DISP.SYRIN SQ SCH (09:07)
[2022-11-09] MEDS: LIDOCAINE 5% TOPICAL PATCH TP SCH (09:07)
[2022-11-09] MEDS: AMINO ACIDS/PROTEIN HYDROLYS 30 ML LIQUID.PKT PO SCH ×2 (09:07→17:41)
[2022-11-09] MEDS: PANTOPRAZOLE 40 MG TABLET PO SCH (09:07)
[2022-11-09 09:18] LABS: BASO % 0.5 % (0-2.0); EOS % 2.9 % (0-4.5); HEMATOCRIT 32.2 % (32.4-45.2); HEMOGLOBIN 10.7 GM/dL (10.7-15.3); LYMPH % 21.9 % (8-40); MCH 28.5 pg (25.7-33.7); MCHC 33.3 g/dl (32.0-36.0); MEAN CELL VOLUME 85.3 fl (80-96); MEAN PLT VOLUME 8.3 fl (7.5-11.1); MONO % 7.3 % (3.8-10.2); NEUT % 67.4 % (42.8-82.8); PLATELET COUNT 739 10^3/uL (134-434); RBC 3.77 M/mm3 (3.60-5.2); WHITE BLOOD COUNT 5.8 K/mm3 (4.0-10.0)
[2022-11-09 09:35] LABS: CALCIUM 8.2 mg/dL (8.5-10.1)
[2022-11-09 09:36] LABS: ALBUMIN 2.2 g/dl (3.4-5.0); BLOOD UREA NITROGEN 7.9 mg/dL (7-18)
[2022-11-09 09:39] LABS: CREATININE 0.7 mg/dL (0.55-1.3)
[2022-11-09 09:40] LABS: BILIRUBIN,TOTAL 0.4 mg/dL (0.2-1)
[2022-11-09 09:41] LABS: TOT PROT 5.4 g/dl (6.4-8.2)
[2022-11-09] MEDS: oxyCODONE HCL 5 MG TABLET PO PRN (14:54)
[2022-11-09] MEDS: ROSUVASTATIN CA 20 MG TABLET PO SCH (21:27)
[2022-11-09] MEDS: LIDOCAINE PATCH REMOVAL MC SCH (21:28)
[2022-11-10] MEDS ORDERED: diphenhydrAMINE HCL 25 MG CAPSULE (FP) PO ONE (00:39)
[2022-11-10] MEDS: INSULIN SLIDING SCALE (NOVOLOG) 1 VIAL SQ SCH ×4 (06:39→21:21)
[2022-11-10] MEDS: AMINO ACIDS/PROTEIN HYDROLYS 30 ML LIQUID.PKT PO SCH ×2 (08:07→16:58)
[2022-11-10] MEDS: PANTOPRAZOLE 40 MG TABLET PO SCH (09:11)
[2022-11-10] MEDS: amLODIPine BESYLATE 5 MG TABLET (FP) PO SCH (09:12)
[2022-11-10] MEDS: ENOXAPARIN NA (PORCINE) 40 MG/0.4 ML DISP.SYRIN SQ SCH (09:12)
[2022-11-10] MEDS: LIDOCAINE 5% TOPICAL PATCH TP SCH (09:12)
[2022-11-10] MEDS: ROSUVASTATIN CA 20 MG TABLET PO SCH (21:18)
[2022-11-10] MEDS: ACETAMINOPHEN 500 MG TABLET (FP) PO PRN (21:19)
[2022-11-10] MEDS: LIDOCAINE PATCH REMOVAL MC SCH (21:22)
[2022-11-11] MEDS: INSULIN SLIDING SCALE (NOVOLOG) 1 VIAL SQ SCH ×4 (07:55→21:15)
[2022-11-11] MEDS: AMINO ACIDS/PROTEIN HYDROLYS 30 ML LIQUID.PKT PO SCH ×2 (08:42→17:20)
[2022-11-11] MEDS: ENOXAPARIN NA (PORCINE) 40 MG/0.4 ML DISP.SYRIN SQ SCH (09:29)
[2022-11-11] MEDS: amLODIPine BESYLATE 5 MG TABLET (FP) PO SCH (09:30)
[2022-11-11] MEDS: PANTOPRAZOLE 40 MG TABLET PO SCH (09:30)
[2022-11-11] MEDS: valACYclovir HCL 500 MG TABLET (FP) PO SCH (10:00)
[2022-11-11] MEDS: LIDOCAINE 5% TOPICAL PATCH TP SCH (10:00)
[2022-11-11] MEDS: PREGABALIN 50 MG CAPSULE PO SCH ×2 (10:00→21:35)
[2022-11-11 14:54] VITALS: RESP 18
[2022-11-11] MEDS: oxyCODONE HCL 5 MG TABLET PO PRN (17:23)
[2022-11-11] MEDS: LIDOCAINE PATCH REMOVAL MC SCH (21:34)
[2022-11-11] MEDS: ROSUVASTATIN CA 20 MG TABLET PO SCH (21:35)
[2022-11-12] MEDS: INSULIN SLIDING SCALE (NOVOLOG) 1 VIAL SQ SCH (07:00)
[2022-11-12] MEDS: AMINO ACIDS/PROTEIN HYDROLYS 30 ML LIQUID.PKT PO SCH (09:16)
[2022-11-12] MEDS: valACYclovir HCL 500 MG TABLET (FP) PO SCH (09:16)
[2022-11-12] MEDS: LIDOCAINE 5% TOPICAL PATCH TP SCH (09:16)
[2022-11-12] MEDS: amLODIPine BESYLATE 5 MG TABLET (FP) PO SCH (09:16)
[2022-11-12] MEDS: PREGABALIN 50 MG CAPSULE PO SCH (09:16)
[2022-11-12] MEDS: PANTOPRAZOLE 40 MG TABLET PO SCH (09:16)
[2022-11-12] MEDS: ENOXAPARIN NA (PORCINE) 40 MG/0.4 ML DISP.SYRIN SQ SCH (09:17)
[2022-11-12 14:57] VITALS: BP 112/52; PULSE 92; TEMP 98.9
== END 2022-11-12 15:00 | disposition home health service (06) | DRG 330 ==
LOC: JER 16:04 → JERBED 21:35 → J6S 10-24 04:14
PROVIDERS: ADMIT Internal Medicine; ATTEND Internal Medicine
PROC: 0D9670Z Drainage of Stomach with Drainage Device, Via Natural or Artificial Opening (ICD-10-PCS; 2022-10-24)
PROC: 0DN80ZZ Release Small Intestine, Open Approach (ICD-10-PCS; 2022-10-28)
PROC: 0DBA0ZZ Excision of Jejunum, Open Approach (ICD-10-PCS; 2022-10-28)
PROC: 0DBB0ZZ Excision of Ileum, Open Approach (ICD-10-PCS; principal; 2022-10-28 08:00)
PROC: 0WQF0ZZ Repair Abdominal Wall, Open Approach (ICD-10-PCS; 2022-11-06)
DX: K45.0 Other specified abdominal hernia with obstruction, without gangrene (principal); E87.0 Hyperosmolality and hypernatremia; T81.49XA Infection following a procedure, other surgical site, initial encounter; K56.7 Ileus, unspecified; K46.0 Unspecified abdominal hernia with obstruction, without gangrene; I25.10 Atherosclerotic heart disease of native coronary artery without angina pectoris; E11.9 Type 2 diabetes mellitus without complications; I10 Essential (primary) hypertension; Z79.84 Long term (current) use of oral hypoglycemic drugs; E87.6 Hypokalemia; E86.0 Dehydration; G62.9 Polyneuropathy, unspecified; E83.39 Other disorders of phosphorus metabolism; Y83.8 Other surgical procedures as the cause of abnormal reaction of the patient, or of later complication, without mention of misadventure at the time of the procedure; R50.9 Fever, unspecified; D72.829 Elevated white blood cell count, unspecified; R19.7 Diarrhea, unspecified
CPT/HCPCS: 0241U-QW; 36415; 71045-TC-FY; 71275-TC; 74019-TC-FY; 74021-TC-FY; 74174-TC; 74250-TC-FY; 80048; 80053; 80061; 81003; 82150; 82962; 83605; 83690; 83735; 84100; 84484; 85025; 85610; 86140; 86850; 86900; 86901; 87040; 87045; 87046; 87070; 87076; 87086; 87186; 87205; 87324; 87449; 88307-TC; 93005; 93010; 94760; 97116-GP; 99285-25; Q9967